=== PATIENT | female | born 1985 | race Caucasian/White ===

== ENCOUNTER → 2016-06-22 | Outpatient (CLI) | payer MEDICAID ==
--- NOTE | 2016-06-22 14:55 | P.BASOAP ---
Subjective Principal diagnosis: Morbid obesity Patient started her Adipex 3 months ago. Since that time the patient is an about 5-6 pounds of weight loss. She was able to meet with the dietitian last visit. Blood pressure stable. She still is eating about 50% of her medial size when compared to preoperative. Objective - Exam Abdomen: Soft, nontender, nondistended Assessment/Plan (1) Morbid obesity Narrative/Plan: Continue exercise and dietary regimen. Finish out the 90 day supply of Adipex and was provided. Patient I did briefly discuss the further surgical options of duodenal switch and biliopancreatic diversion. Follow-up in the office in August. Plan: Date: Initial Weight: 133.9 kg Initial BMI: Current Weight: Current BMI: Type of Surgery: Total Volume in Band: Previous Volume: Volume Removed: Volume Added: Band Size:
[2016-06-22 14:57] VITALS: BMI 39.5
[2016-06-22 15:10] VITALS: BP 138/93; PULSE 83; TEMP 97.8
== END | disposition home or self-care (01) ==
LOC: BARWHC3 13:13
PROVIDERS: ATTEND Surgery
DX: Z71.3 Dietary counseling and surveillance (principal); Z48.815 Encounter for surgical aftercare following surgery on the digestive system; E66.01 Morbid (severe) obesity due to excess calories; Z98.84 Bariatric surgery status
CPT/HCPCS: 99211

== ENCOUNTER → 2018-10-13 | Outpatient (CLI) | payer MEDICAID ==
[2018-10-13 17:05] LABS: LDL Cholesterol,Calculated 121.8 mg/dL (0.0-131.0); VLDL Calculation 34.2 mg/dL (5.00-40.00)
[2018-10-13 17:06] LABS: African American GFR (CKD) 138.8 (60.0-200.0); Albumin 4.2 g/dL (3.80-4.90); Albumin/Globulin Ratio 1.5 (1.60-3.17); Anion Gap 7.5 mmol/L (4.00-12.00); Calcium 9.4 mg/dL (8.7-10.3); Carbon Dioxide 25.5 mmol/L (21.6-31.8); Globulin 2.8 g/dL (1.6-3.3); Potassium 4.9 mmol/L (3.5-5.5); Total Bilirubin 0.3 mg/dL (0.3-1.2)
[2018-10-13 17:15] LABS: Thyroid Peroxidase Antibodies 96.2 U/mL (0.0-60.0)
[2018-10-13 17:27] LABS: Vitamin D 25 Hydroxy 14.2 ng/mL (30.0-100.0)
[2018-10-13 18:29] LABS: Hemoglobin A1C 5.7 % (4.0-6.0)
== END | disposition home or self-care (01) ==
LOC: LABWHC1 07:57
PROVIDERS: ATTEND Clinical Nurse Specialist Women's Health
DX: R53.83 Other fatigue (principal); Z68.42 Body mass index [BMI] 45.0-49.9, adult; Z83.3 Family history of diabetes mellitus
CPT/HCPCS: 36415; 80053; 80061; 82306; 82607; 82728; 83036; 83525; 84439; 84443; 84481; 86141; 86376

== ENCOUNTER → 2019-01-25 | Outpatient (CLI) | payer MEDICAID ==
[2019-01-25 19:48] LABS: Iron Saturation 21.52 (12.00-45.00)
[2019-01-25 20:04] LABS: Ferritin 12.5 ng/mL (10.0-291.0)
== END | disposition home or self-care (01) ==
LOC: LABWHC1 09:00
PROVIDERS: ATTEND Clinical Nurse Specialist Women's Health
DX: E61.1 Iron deficiency (principal)
CPT/HCPCS: 36415; 82728; 83540; 83550

== ENCOUNTER → 2019-06-11 | Outpatient (CLI) | payer BC ==
[2019-06-12 01:44] LABS: T4, Free (Free Thyroxine) 1.3 ng/dL (0.80-1.80); Thyroid Peroxidase Antibodies 101.2 U/mL (0.0-60.0)
== END | disposition home or self-care (01) ==
LOC: LABWHC1 14:43
PROVIDERS: ATTEND Internal Medicine Endocrinology, Diabetes & Metabolism
DX: R76.8 Other specified abnormal immunological findings in serum (principal)
CPT/HCPCS: 36415; 84439; 84443; 84480; 86376

== ENCOUNTER → 2019-10-23 | Outpatient (CLI) | payer BC ==
[2019-10-23 15:44] LABS: HCT 35.6 % (34.0-46.0); HGB 11.5 gm/dL (11.4-16.0); MCH 28.3 pg (25.0-35.0); MCHC 32.2 g/dL (31.0-37.0); Mean Platelet Volume 7.1; Platelet Count 498 k/uL (150-450); RBC 4.05 m/uL (3.80-5.40); RDW 13.4 % (11.5-15.5); WBC 13.5 k/uL (3.8-10.6)
[2019-10-23 23:51] LABS: African American GFR (CKD) 137.8 (60.0-200.0); Non-African American GFR(CKD) 118.9 (60.0-200.0)
[2019-10-23 23:57] LABS: Thyroid Peroxidase Antibodies 104.5 U/mL (0.0-60.0)
[2019-10-23 23:59] LABS: T4, Free (Free Thyroxine) 1.1 ng/dL (0.80-1.80)
[2019-10-24 01:42] LABS: Hemoglobin A1C 5.3 % (4.0-6.0)
[2019-10-24 04:56] LABS: Creatinine,Urine Random 307.2 mg/dL
== END | disposition home or self-care (01) ==
LOC: LABWHC1 13:36
PROVIDERS: ATTEND Internal Medicine Endocrinology, Diabetes & Metabolism
DX: R76.8 Other specified abnormal immunological findings in serum (principal); O10.012 Pre-existing essential hypertension complicating pregnancy, second trimester; O99.212 Obesity complicating pregnancy, second trimester
CPT/HCPCS: 36415; 82565; 82570; 82947; 83036; 83615; 84156; 84439; 84443; 84450; 84460; 84480; 84520; 85027; 86376

== ENCOUNTER → 2019-11-09 | Outpatient (CLI) | payer BC | END | disposition home or self-care (01) | LOC: LABWHC1 10:08 | PROVIDERS: ATTEND Obstetrics & Gynecology | DX: Z34.02 Encounter for supervision of normal first pregnancy, second trimester (principal) | CPT/HCPCS: 86850 ==

== ENCOUNTER 2020-01-22 15:58 | Inpatient (IN) | payer BC ==
[2020-01-22] MEDS ORDERED: BUTORPHANOL 1 MG/ML 1 ML VIAL IV PRN (16:44)
[2020-01-22] MEDS ORDERED: DINOPROSTONE 10 MG INSERT.ER VAGINAL ONE (16:44)
[2020-01-22] MEDS: LABETALOL 100 MG TAB PO SCH (21:13)
[2020-01-23] MEDS ORDERED: OXYTOCIN 10 UNIT/ML 1 ML VIAL IM PRN (00:26)
[2020-01-23] MEDS ORDERED: CARBOPROST TROMETHAMINE 250 MCG/ML 1 ML AMP IM PRN (00:26)
[2020-01-23] MEDS ORDERED: LIDOCAINE 0.5% (PF) 5 MG/ML (50 ML SDV) SQ PRN (00:26)
[2020-01-23] MEDS ORDERED: METHYLERGONOVINE 0.2 MG/ML 1 ML AMP IM PRN (00:26)
[2020-01-23] MEDS ORDERED: TERBUTALINE 1 MG/ML VIAL SQ PRN (00:26)
[2020-01-23] MEDS: LACTATED RINGERS 1,000 ML IV SCH ×3 (05:36→20:40)
[2020-01-23] MEDS: OXYTOCIN 30 UNITS/500 ML NS 30 UNIT in SALINE 1 500ML.BAG IV SCH (05:51)
[2020-01-23 06:02] LABS: Basophils # (A) 0.1 k/uL (0-0.2); Basophils % (A) 1 %; Eosinophils # (A) 0.2 k/uL (0-0.7); Eosinophils % (A) 1 %; HGB 11.9 gm/dL (11.4-16.0); Lymphocytes # (A) 3.1 k/uL (1.0-4.8); Lymphocytes % (A) 29 %; MCH 28.2 pg (25.0-35.0); MCV 85.5 fL (80.0-100.0); Mean Platelet Volume 7.5; Monocytes # (A) 0.5 k/uL (0-1.0); Monocytes % (A) 4 %; Neutrophils # (A) 6.9 k/uL (1.3-7.7); Neutrophils % (A) 63 %; Platelet Count 410 k/uL (150-450); RBC 4.22 m/uL (3.80-5.40); RDW 13.7 % (11.5-15.5); WBC 10.9 k/uL (3.8-10.6)
[2020-01-23] MEDS: LABETALOL 100 MG TAB PO SCH ×2 (09:00→20:54)
--- NOTE | 2020-01-23 17:42 | P.HPOB ---
History of Present Illness H&P Date: 01/23/20 Chief Complaint: Induction of labor 34-year-old presents at 38 weeks and 2 days for induction of labor due to gestational hypertension controlled on medication. Her cervix is closed, thick, -2 station. She is not tess. heart tones are 135 with moderate variability and reactive. She will undergo a 2-stage induction of labor. Review of Systems All systems: negative Constitutional: Denies chills, Denies fever Eyes: denies blurred vision, denies pain Ears, nose, mouth and throat: Denies headache, Denies sore throat Cardiovascular: Denies chest pain, Denies shortness of breath Respiratory: Denies cough Gastrointestinal: Denies abdominal pain, Denies diarrhea, Denies nausea, Denies vomiting Genitourinary: Denies dysuria, Denies hematuria Musculoskeletal: Denies myalgias Integumentary: Denies pruritus, Denies rash Neurological: Denies numbness, Denies weakness Psychiatric: Denies anxiety, Denies depression Endocrine: Denies fatigue, Denies weight change Past Medical History Past Medical History: No Reported History Additional Past Medical History / Comment(s): BACK PAIN. Obstetric history: This is her first . She's had care with me since the first trimester. I put her on labetalol at the beginning of the third trimester in the . She's been followed with me and MFM through NSTs and biophysical profiles. Blood type is O-, and breast negative, HIV nonreactive, rubella immune, RPR nonreactive, hepatitis B negative. History of Any Multi-Drug Resistant Organisms: None Reported Past Surgical History: Bariatric Surgery, Cholecystectomy Additional Past Surgical History / Comment(s): EGD, 2-1-16 lap sleeve Past Anesthesia/Blood Transfusion Reactions: Motion Sickness Past Psychological History: No Psychological Hx Reported Smoking Status: Never smoker Past Alcohol Use History: None Reported Past Drug Use History: None Reported - Past Family History Sister(s) Family Medical History: Thyroid Disorder Father Family Medical History: Diabetes Mellitus Mother Family Medical History: No Reported History, Thyroid Disorder Additional Family Medical History / Comment(s): chronic kidney stones, mother 2 years ago (2018) from ?blood clot or thrombocytopenia after lasik surgery. Medications and Allergies Home Medications Medication Instructions Recorded Confirmed Type Aspirin [Adult Low Dose Aspirin EC] 81 mg PO DAILY MDD 81 mg 01/22/20 01/22/20 History Labetalol [Trandate] 100 mg PO BID 01/22/20 01/22/20 History Pnv,Calcium 72/Iron/Folic Acid 1 each PO DAILY MDD 1 tab 01/22/20 01/22/20 History [ Plus Tablet] Allergies Allergy/AdvReac Type Severity Reaction Status Date / Time seasonal AdvReac Cough Uncoded 06/22/16 14:56 Exam Osteopathic Statement: *. No significant issues noted on an osteopathic st ructural exam other than those noted in the History and Physical/Consult. Intake and Output 01/23/20 01/23/20 01/23/20 06:59 14:59 22:59 Other: # Voids 1 1 # Bowel Movements 0 Heart: Regular rate and rhythm Lungs: Clear to auscultation bilaterally Abdomen: Soft, nontender Extremities: Negative Homans sign Results Result Diagrams: 01/23/20 05:48 Abnormal Lab Results - Last 24 Hours (Table) 01/23/20 Range/Units 05:48 WBC 10.9 H (3.8-10.6) k/uL Assessment and Plan (1) Gestational hypertension Current Visit: Yes Status: Acute Code(s): O13.9 - GESTATIONAL HTN W/O SIGNIFICANT PROTEINURIA, UNSP TRIMESTER SNOMED Code(s): 497269264 (2) Normal labor Current Visit: Yes Status: Acute Code(s): O80 - ENCOUNTER FOR FULL-TERM UNCOMPLICATED DELIVERY; Z37.9 - OUTCOME OF DELIVERY, UNSPECIFIED SNOMED Code(s): 15567233 Plan: 1. Induction of labor with Cervidil and then amniotomy and Pitocin in the morning 2. Monitor blood pressures and continue labetalol 3. Anticipate normal vaginal delivery
[2020-01-24] MEDS: LACTATED RINGERS 1,000 ML IV SCH ×3 (03:14→18:14)
[2020-01-24] MEDS ORDERED: ROPIVACAINE 100 MG, fentaNYL (PF) 200 MCG in SODIUM CHLORIDE 0.9% 76 ML EPIDURAL ONE (03:15)
[2020-01-24] MEDS ORDERED: AMPICILLIN 2,000 MG in SODIUM CHLORIDE 0.9% 100 ML IVPB STA (05:17)
[2020-01-24] MEDS: LABETALOL 100 MG TAB PO SCH (09:23)
[2020-01-24] MEDS ORDERED: AMPICILLIN 1,000 MG in SODIUM CHLORIDE 0.9% 50 ML IVPB SCH (09:30)
[2020-01-24] MEDS: OXYTOCIN 30 UNITS/500 ML NS 30 UNIT in SALINE 1 500ML.BAG IV SCH (12:09)
[2020-01-24] MEDS ORDERED: ceFAZolin 3 GM in SODIUM CHLORIDE 0.9% 100 ML IVPB ONE (13:08)
[2020-01-24] MEDS ORDERED: CITRIC ACID-SODIUM CITRATE 15 ML CUP PO ONE ×2 (13:08→13:14)
[2020-01-24] MEDS ORDERED: OXYTOCIN 10 UNIT/ML 1 ML VIAL ONE (13:13)
[2020-01-24] MEDS ORDERED: NALBUPHINE 10 MG/ML (1 ML AMP) ONE (13:13)
[2020-01-24] MEDS ORDERED: ONDANSETRON 4 MG/2 ML VIAL ONE (13:13)
[2020-01-24] MEDS ORDERED: KETOROLAC 15 MG/ML 1 ML VIAL ONE (13:13)
[2020-01-24] MEDS ORDERED: MORPHINE SULFATE (PF) 0.3 MG/0.3 ML SYR ONE (13:13)
[2020-01-24] MEDS ORDERED: LANOLIN CREAM 5 GM TUBE TOPICAL PRN (13:55)
[2020-01-24] MEDS ORDERED: METOCLOPRAMIDE 5 MG/ML 2 ML VIAL IVP PRN (13:55)
[2020-01-24] MEDS ORDERED: diphenhydrAMINE 25 MG CAP PO PRN (13:55)
[2020-01-24] MEDS ORDERED: ACETAMINOPHEN TAB 325 MG TAB PO PRN (13:55)
[2020-01-24] MEDS ORDERED: diphenhydrAMINE 50 MG/ML 1 ML VIAL IVP PRN ×2 (13:55)
[2020-01-24] MEDS ORDERED: NALOXONE 0.4 MG/ML 1 ML VIAL IV PRN (13:55)
[2020-01-24] MEDS ORDERED: ONDANSETRON 4 MG/2 ML VIAL IVP PRN (13:55)
[2020-01-24] MEDS ORDERED: diphenhydrAMINE 50 MG CAP PO PRN (13:55)
[2020-01-24] MEDS ORDERED: ZOLPIDEM 5 MG TAB PO PRN (13:55)
[2020-01-24] MEDS ORDERED: SIMETHICONE 80 MG CHEWABLE PO PRN (13:55)
[2020-01-24] MEDS ORDERED: OXYTOCIN 20 UNITS/1000 ML NS 1,000 ML IV SCH (14:00)
[2020-01-24] MEDS ORDERED: INFLUENZA VACCINE (6 MOS+) 60 MCG/0.5 ML SYRINGE IM ONE (14:10)
[2020-01-24] MEDS ORDERED: OXYTOCIN 10 UNIT/ML 1 ML VIAL IV ONE (17:38)
[2020-01-24 17:55] LABS: Basophils % (A) 0 %; Eosinophils % (A) 0 %; HCT 34.9 % (34.0-46.0); HGB 11.5 gm/dL (11.4-16.0); Lymphocytes # (A) 1.6 k/uL (1.0-4.8); Lymphocytes % (A) 6 %; MCHC 32.9 g/dL (31.0-37.0); MCV 85.2 fL (80.0-100.0); Mean Platelet Volume 7.8; Monocytes % (A) 4 %; Neutrophils # (A) 21.8 k/uL (1.3-7.7); Neutrophils % (A) 89 %; Platelet Count 462 k/uL (150-450); RBC 4.09 m/uL (3.80-5.40); RDW 13.9 % (11.5-15.5); WBC 24.5 k/uL (3.8-10.6)
[2020-01-24] MEDS ORDERED: CARBOPROST TROMETHAMINE 250 MCG/ML 1 ML AMP IM ONE (18:28)
--- NOTE | 2020-01-24 19:17 | P.PN ---
Progress Note - Text Progress Note Date: 01/24/20 I was called to see this patient in regards to bleeding. Please see dictated H&P and operative note per Dr. Dickerson. Brief summary this is a pleasant 34-year-old 1 para 0 female 38 weeks status post primary section at 1334 this afternoon for failed induction of labor for hypertension. Patient postoperative apparently did not have much vaginal bleeding but then at approximately 5:15 she had a very large gush of blood with multiple clots. Nurse called me and at this time I instructed her to give her 10 units of Pitocin IV push because the patient does have chronic hypertension therefore is not an ideal Methergine candidate. I came in and examined the patient and although her exam is somewhat limited by a her obesity, it was felt that she had multiple clots in the uterus which I was able to express with vigorous fundal pressure. Quantitative blood loss with the initial bleeding and what I removed was approximately 2630 mL. Patient's vital signs shows to be tachycardic and hypotensive therefore she is given a bolus of lactated Ringer's. I continued to do fundal massage and appeared to be bleeding diminished. Proactively I did feel is best to go ahead and give her a dose of Hemabate, which she tolerated very well. The patient did have blood drawn for her RhoGAM done approximately 4:30, at that time was 11.5. Preoperative 11.9. Most likely this is not accurate because clinically the patient has lost a significant amount of blood. With the uterine massage, Pitocin, and Hemabate patient now appears stable with blood pressures have improved and she is less tachycardic. I did multiple exams and I cannot see any significant bleeding at this time but once again exam is limited due to the patient's habitus. I discussed with the patient and her and family plan at this time is to watch closely, continue IV Pitocin and IV fluids, repeat a CBC in approximately 1 hour. If I had concerns with further bleeding or her hemoglobin was less than 8 I did discuss giving her 2 units of blood which she is agreeable to. We are going to wait at this time because it appears her bleeding has subsided. I also discussed the fact that if she continued to have heavy bleeding and we are unable to stop the bleeding with medical treatment she may need reexploration. For this reason we'll keep her nothing by mouth at this time.
[2020-01-24 20:07] LABS: Basophils # (A) 0.1 k/uL (0-0.2); Basophils % (A) 0 %; Eosinophils # (A) 0.2 k/uL (0-0.7); Eosinophils % (A) 1 %; HCT 30.3 % (34.0-46.0); Lymphocytes # (A) 1.7 k/uL (1.0-4.8); Lymphocytes % (A) 8 %; MCH 28.4 pg (25.0-35.0); MCHC 33.1 g/dL (31.0-37.0); MCV 85.9 fL (80.0-100.0); Mean Platelet Volume 7.5; Monocytes # (A) 0.7 k/uL (0-1.0); Monocytes % (A) 3 %; Neutrophils # (A) 19.4 k/uL (1.3-7.7); Neutrophils % (A) 88 %; Platelet Count 475 k/uL (150-450); RBC 3.52 m/uL (3.80-5.40); RDW 14.2 % (11.5-15.5); WBC 22.1 k/uL (3.8-10.6)
[2020-01-24] MEDS ORDERED: Rhogam IMMUNE GLOBULIN 1,500 UNIT/1 ML IM ONE (20:47)
[2020-01-25] MEDS: LACTATED RINGERS 1,000 ML IV SCH ×2 (03:31→21:31)
--- NOTE | 2020-01-25 07:06 | P.PN ---
Progress Note - Text Progress Note Date: 01/25/20 Patient is without complaints. Has not ambulated, but denies paresthesia or weakness. Denies headache or pruritis. Minimal pain. Back puncture site clean and dry. POD #1 s/p with duramorph. Doing well
[2020-01-25] MEDS: KETOROLAC 15 MG/ML 1 ML VIAL IVP SCH ×3 (08:23→22:37)
--- NOTE | 2020-01-25 08:26 | P.OP ---
Date of Procedure: 01/24/20 Preoperative Diagnosis: 1. at 38 weeks 3 days 2. gestational hypertension on labetalol 3. arrest of descent Postoperative Diagnosis: 1. at 38 weeks 3 days 2. gestational hypertension on labetalol 3. arrest of descent 4. OP position of head Procedure(s) Performed: Primary low transverse Anesthesia: epidural Surgeon: Penelope Dickerson Scientist/Engineer #1: Sheldon Moya Estimated Blood Loss (ml): 800 IV fluids (ml): 800 Urine output (ml): 100 Pathology: other (placenta) Condition: stable Disposition: floor Indications for Procedure: 34-year-old presented at 38 weeks and 2 days for induction of labor due to gestational hypertension on labetalol. Her cervix was closed, thick, -3. heart tones 135 with moderate variability and reactive. Cervidil did dilate her to fingertip. Pitocin was started. I was able to rupture her membranes by 12:30pm when she was 1 cm dilated, a 60% effaced, -2 station. I took quite some time to get her uncomfortable. She did get an epidural at 3 in the morning of the following day. At this time she was 3 cm dilated, 70% effaced, and -2 station. She did progress to complete by 11:49 AM. She pushed for over an hour without descent of head. section was called after informed consent was obtained. Operative Findings: Viable male, Apgars 7, 9, weight 8 pounds. Normal uterus, tubes, ovaries. Description of Procedure: Patient was taken to the operating room where spinal anesthesia was found be adequate. She was prepped and draped in normal sterile fashion in dorsal supine position with a leftward tilt. Pfannenstiel skin incision was made the scalpel and carried through to the underlying layer of fascia with the scalpel. Fascia was incised in midline and carried bilaterally with the Nunez scissors. The superior aspect of the fascial incision was grasped with [place] clamps elevated and the underlying rectus muscles dissected off with the Nunez's. Attention was then turned to inferior aspect of same incision which in a similar fashion was grasped tented up and the underlying rectus muscles dissected off with the Nunez's. The rectus muscles were the midline and the peritoneum was identified tented up and entered sharply with the scalpel. The incision was extended superiorly and inferiorly with good visualization of the bladder. The bladder blade was inserted and the vesicouterine peritoneum was incised the [place]zen[place]ums then carried bilaterally and bladder flap created digitally. A low transverse incision was then made on the uterus with the scalpel. This was carried bilaterally and digital manner. Infant's head delivered atraumatically, nose and mouth bulb suctioned, cord clamped and cut, handed off to waiting nurses. Apgars 7,9, weight 8 lbs. Placenta delivered manually, intact with three-vessel cord. The uterus is exteriorized and cleared of all clots and debris. The uterine incision was closed with 0 Vicryl in a running locked fashion. Second layer of the same sutures used in imbricating fashion to obtain excellent hemostasis. Bladder flap was then reapproximated using 2-0 Vicryl in a running fashion. Both ovaries and tubes appeared normal. The uterus was placed back into the abdomen. The peritoneum was reapproximated using 2-0 Vicryl in a running fashion. The muscles were reapproximated using 2-0 Vicryl in interrupted fashion. The fascia was reapproximated using 0 Vicryl in a running fashion. The subcutaneous tissues closed with 3-0 Vicryl running fashion. The skin was closed adarsh. Patient tolerated the procedure well, sponge and instrument counts were correct times 2 and she was taken to the recovery room in stable condition.
--- NOTE | 2020-01-25 08:30 | P.PNOBGPC ---
Subjective - Subjective Principal diagnosis: Status post primary low transverse postop day #1 Interval history: Patient seen and examined. Notes reviewed from Dr. Moya. Patient had a hemorrhage yesterday evening. Her morning CBC is still not drawn though I would not prefer to wait to transfuse at this time. She is tachycardic and her blood pressure is stable but lower than it usually is. She denies nausea, vomiting, chest pain, shortness of breath, dizziness or headache. Her urine output is adequate but I would expect more since she's had some much fluid. We did discuss risks and benefits of a blood transfusion. The CBC has been drawn and all wait for those results then order blood and possibly Lasix. Patient reports: Reports appetite normal, Reports pain well controlled : doing well Objective - Vital Signs Latest vital signs: Vital Signs Temp Pulse Resp BP Pulse Ox 01/25/20 04:00 98.5 F 123 H 16 109/59 01/25/20 00:00 97.6 F 115 H 16 120/60 01/24/20 21:00 116 H 16 106/57 97 01/24/20 20:00 97.5 F L 110 H 16 110/66 97 01/24/20 16:11 84 16 124/69 97 01/24/20 15:41 74 16 130/61 95 01/24/20 15:11 91 16 131/60 97 01/24/20 14:56 90 16 133/57 98 01/24/20 14:41 83 16 127/61 99 01/24/20 14:26 86 16 132/72 98 01/24/20 14:11 98.3 F 90 16 119/58 98 Intake and Output 01/24/20 01/25/20 01/25/20 22:59 06:59 14:59 Intake Total 500 500 Output Total 200 300 250 Balance -200 200 250 Intake: Oral 500 500 Output: Urine 200 300 250 Other: Voiding Method Indwelling Catheter - Exam Lungs: bilateral: normal Chest: Normal S1, Normal S2 Extremities: Present: normal Abdomen: Present: normal appearance, soft. Absent: distention, tenderness Incision: Present: normal, dry, intact Uterus: Present: normal, firm - Labs Labs: Abnormal Lab Results - Last 24 Hours (Table) 01/24/20 01/24/20 Range/Units 16:22 19:49 WBC 24.5 H 22.1 H (3.8-10.6) k/uL RBC 3.52 L (3.80-5.40) m/uL Hgb 10.0 L D (11.4-16.0) gm/dL Hct 30.3 L (34.0-46.0) % Plt Count 462 H 475 H (150-450) k/uL Neutrophils # 21.8 H 19.4 H (1.3-7.7) k/uL Assessment and Plan (1) Gestational hypertension Current Visit: Yes Status: Acute Code(s): O13.9 - GESTATIONAL HTN W/O SIGNIFICANT PROTEINURIA, UNSP TRIMESTER SNOMED Code(s): 479004222 (2) Normal labor Current Visit: Yes Status: Resolved Code(s): O80 - ENCOUNTER FOR FULL-TERM UNCOMPLICATED DELIVERY; Z37.9 - OUTCOME OF DELIVERY, UNSPECIFIED SNOMED Code(s): 60596550 (3) Status post primary low transverse section Current Visit: Yes Status: Acute Code(s): Z98.891 - HISTORY OF UTERINE SCAR FROM PREVIOUS SURGERY SNOMED Code(s): 363467180 (4) hemorrhage Current Visit: Yes Status: Acute Code(s): O72.1 - OTHER IMMEDIATE HEMORRHAGE SNOMED Code(s): 92316864 Plan: 1. Check CBC 2. Transfuse 2 units packed red blood cells 3. Monitor urine output: Possible 20 mg of Lasix if her blood pressure remained stable and urine output remains low
[2020-01-25 08:46] LABS: Basophils # (A) 0.1 k/uL (0-0.2); Basophils % (A) 0 %; Eosinophils # (A) 0.1 k/uL (0-0.7); Eosinophils % (A) 0 %; HCT 24.1 % (34.0-46.0); Lymphocytes # (A) 3.6 k/uL (1.0-4.8); Lymphocytes % (A) 19 %; MCH 28.2 pg (25.0-35.0); MCHC 32.9 g/dL (31.0-37.0); MCV 85.8 fL (80.0-100.0); Mean Platelet Volume 7.4; Monocytes # (A) 0.7 k/uL (0-1.0); Monocytes % (A) 4 %; Neutrophils # (A) 14.1 k/uL (1.3-7.7); Neutrophils % (A) 75 %; Platelet Count 418 k/uL (150-450); RBC 2.81 m/uL (3.80-5.40); RDW 14.3 % (11.5-15.5); WBC 18.8 k/uL (3.8-10.6)
[2020-01-25 08:52] LABS: HGB 7.9 gm/dL (11.4-16.0)
[2020-01-25] MEDS: SENNOSIDES-DOCUSATE SODIUM 1 EACH TAB PO SCH ×2 (09:03→21:22)
[2020-01-25] MEDS ORDERED: FUROSEMIDE 10 MG/ML 2 ML VIAL IV ONE (09:04)
[2020-01-25] MEDS ORDERED: SODIUM CHLORIDE 0.9% 1,000 ML IV SCH (09:45)
[2020-01-26] MEDS: LACTATED RINGERS 1,000 ML IV SCH ×2 (01:32→13:48)
[2020-01-26] MEDS: KETOROLAC 15 MG/ML 1 ML VIAL IVP SCH ×3 (04:38→06:39)
[2020-01-26 07:27] LABS: Basophils # (A) 0.1 k/uL (0-0.2); Basophils % (A) 0 %; Eosinophils # (A) 0.2 k/uL (0-0.7); Eosinophils % (A) 2 %; HCT 24.4 % (34.0-46.0); HGB 8.2 gm/dL (11.4-16.0); Lymphocytes # (A) 2.8 k/uL (1.0-4.8); Lymphocytes % (A) 22 %; MCH 28.6 pg (25.0-35.0); MCHC 33.6 g/dL (31.0-37.0); MCV 85.1 fL (80.0-100.0); Mean Platelet Volume 7.2; Monocytes # (A) 0.6 k/uL (0-1.0); Monocytes % (A) 4 %; Neutrophils # (A) 9.1 k/uL (1.3-7.7); Neutrophils % (A) 70 %; Platelet Count 378 k/uL (150-450); RBC 2.86 m/uL (3.80-5.40); RDW 14.4 % (11.5-15.5); WBC 12.9 k/uL (3.8-10.6)
[2020-01-26] MEDS: HYDROcodone/APAP 7.5-325MG 1 EACH TAB PO PRN (08:50)
[2020-01-26] MEDS ORDERED: IRON POLYSACCHARIDES COMPLEX 150 MG CAP PO SCH (12:00)
--- NOTE | 2020-01-26 12:04 | P.PNOBGPC ---
Subjective - Subjective Principal diagnosis: Status post section postoperative day #2. Interval history: Patient is feeling much better today. She denies any dizziness or lightheadedness. She is passing flatus and bowel movement. She has been urinating without difficulty. Her pain is fairly well controlled with [place]. Lochia is minimal. She is quite swollen in her legs. Patient reports: Reports appetite normal, Reports voiding normally, Reports pain well controlled, Reports ambulating normally [place]: doing well Objective - Vital Signs Latest vital signs: Vital Signs Temp Pulse Pulse Resp BP BP Pulse Ox 01/26/20 04:00 98.4 F 108 H 16 134/71 98 01/26/20 00:00 98.1 F 108 H 18 122/68 98 01/25/20 20:00 98.6 F 110 H 18 128/72 99 01/25/20 16:00 98.3 F 116 H 16 131/64 98 01/25/20 13:47 98.5 F 120 H 16 107/56 98 01/25/20 12:55 98.3 F 121 H 16 119/64 100 01/25/20 12:31 98.3 F 116 H 16 116/60 97 01/25/20 12:25 98.6 F 116 H 16 96 01/25/20 12:24 98.6 F 116 H 16 113/60 96 01/25/20 12:15 98.1 F 112 H 16 123/67 96 01/25/20 12:12 98.1 F 116 H 16 119/60 100 Intake and Output 01/25/20 01/26/20 01/26/20 22:59 06:59 14:59 Output Total 650 475 Balance -650 -475 Output: Urine 650 475 Other: # Bowel Movements 1 - Exam Extremities: Present: edema (2-3+ pitting edema in lower extremities) Abdomen: Present: normal appearance, soft (Positive bowel sounds 4). Absent: distention, tenderness Incision: Present: normal, dry, intact. Absent: erythematous Uterus: Present: normal, firm. Absent: tenderness - Labs Labs: Abnormal Lab Results - Last 24 Hours (Table) 01/23/20 01/26/20 Range/Units 05:48 07:03 WBC 12.9 H (3.8-10.6) k/uL RBC 2.86 L (3.80-5.40) m/uL Hgb 8.2 L (11.4-16.0) gm/dL Hct 24.4 L (34.0-46.0) % Neutrophils # 9.1 H (1.3-7.7) k/uL Crossmatch See Detail Assessment and Plan (1) Gestational hypertension Current Visit: Yes Status: Acute Code(s): O13.9 - GESTATIONAL HTN W/O SIGNIFICANT PROTEINURIA, UNSP TRIMESTER SNOMED Code(s): 500776719 (2) hemorrhage Current Visit: Yes Status: Acute Code(s): O72.1 - OTHER IMMEDIATE HEMORRHAGE SNOMED Code(s): 29213597 (3) Status post primary low transverse section Current Visit: Yes Status: Acute Code(s): Z98.891 - HISTORY OF UTERINE SCAR FROM PREVIOUS SURGERY SNOMED Code(s): 265504318 Plan: Although patient is anxious to go home, I have suggested that she stay at least 1 more day to confirm that her blood pressure stays stable that she is still slightly tachycardic. Will add iron supplementation. Patient is encouraged to drink plenty of water.
[2020-01-26] MEDS ORDERED: FERROUS SULFATE 325 MG TAB PO SCH (12:30)
[2020-01-26] MEDS: IBUPROFEN 600 MG TAB PO PRN ×2 (13:01→20:41)
[2020-01-26] MEDS: SENNOSIDES-DOCUSATE SODIUM 1 EACH TAB PO SCH ×2 (13:48→20:14)
[2020-01-26] MEDS ORDERED: LABETALOL 100 MG TAB PO SCH (21:00)
[2020-01-27] MEDS: HYDROcodone/APAP 7.5-325MG 1 EACH TAB PO PRN ×2 (00:18→06:39)
[2020-01-27 04:04] VITALS: TEMP 98.1
[2020-01-27 09:58] VITALS: BP 136/84; PULSE 108; RESP 16
[2020-01-27] MEDS: SENNOSIDES-DOCUSATE SODIUM 1 EACH TAB PO SCH (10:16)
--- NOTE | 2020-01-27 10:57 | P.DS ---
Providers Date of admission: 01/22/20 15:58 Expected date of discharge: 01/27/20 Attending physician: Penelope Dickerson Primary care physician: Stated None - Discharge Diagnosis(es) (1) Gestational hypertension Current Visit: Yes Status: Acute (2) hemorrhage Current Visit: Yes Status: Acute (3) Status post primary low transverse section Current Visit: Yes Status: Acute Hospital Course: Patient is still doing well. She is passing flatus and bowel movement. Pain is fairly well controlled with ibuprofen and [place]. Her lochia is still minimal. Vital signs have been stable. She did have 1 elevated blood pressure of 145/80s but this has come back down to normal. She was not started on labetalol during this admission. She denies any other symptoms. Vital signs are stable. Abdomen is soft with fundus firm and nontender. Positive bowel sounds 4 noted. Incision is clean dry and intact with adarsh in place. Extremities show negative Homans. Impression is status post primary section postoperative day #3. Plan is to discharge home today. Routine and postoperative instructions are given. She is advised to continue taking her blood pressure at home and if she does start to have elevated blood pressures to give the office a call. She is given a prescription for ibuprofen and [place]. She is counseled regarding opioid use and has signed consent form. [place] will be removed and Steri-Strips placed prior to discharge. She is advised to call the office if she has any further questions or concerns prior to her postoperative appointment with Dr. Dickerson and 1 week. Procedures: Cervidil cervical ripening Oxytocin induction of labor Primary low transverse section on 01/24/2020 Patient Condition at Discharge: Stable Plan - Discharge Summary New Discharge Prescriptions: New HYDROcodone/APAP 7.5-325MG [[place] 7.5-325] 1 each PO Q6H PRN #28 tab PRN Reason: Severe Pain Iron Polysaccharide Complex [Myferon 150] 150 mg PO DAILY #30 capsule Continue Pnv,Calcium 72/Iron/Folic Acid [ Plus Tablet] 1 each PO DAILY MDD 1 tab Discontinued Aspirin [Adult Low Dose Aspirin EC] 81 mg PO DAILY MDD 81 mg No Action Labetalol [Trandate] 100 mg PO BID Discharge Medication List Labetalol [Trandate] 100 mg PO BID 01/22/20 [History] Pnv,Calcium 72/Iron/Folic Acid [ Plus Tablet] 1 each PO DAILY MDD 1 tab 01/22/20 [History] HYDROcodone/APAP 7.5-325MG [[place] 7.5-325] 1 each PO Q6H PRN #28 tab 01/26/20 [Rx] Iron Polysaccharide Complex [Myferon 150] 150 mg PO DAILY #30 capsule 01/26/20 [Rx] Follow up Appointment(s)/Referral(s): Penelope Dickerson DO [Doctor of Osteopathic Medicine] - 1 Week Activity/Diet/Wound Care/Special Instructions: Instructions 1. Do not begin any exercise program for 3 weeks. 2. Do not resume sexual relations for 3 weeks or longer if uncomfortable. 3. You may take tub baths or showers at any time. 4. You may use tampons if desired after 3 weeks. 5. Keep the area of episiotomy (stitches) clean and dry. 6. If you are not nursing, wear a good fitting, supportive bra during the day and limit fluid intake for at least 1 week to prevent breast engorgement. 7. Call the office, [phone], within the next week to make appointment for your 6 week checkup if it has not already been made. 8. Report any of the following occurrences to the doctor promptly: a. Heavy, excessive bleeding b. Chills, fever c. Burning or frequency of urination d. Pain or redness and breasts if nursing e. Increasing pain or swelling in episiotomy (stitches). In addition to the above instructions, the following additional should be followed: 1. No heavy lifting or straining (exercising) until after 6 week checkup. 2. Keep abdominal incision clean and dry: You may wear a dressing if more comfortable. 3. Make office appointment for 10 days after going home or as instructed by her doctor. Discharge Disposition: HOME SELF-CARE
== END 2020-01-27 13:30 | disposition home or self-care (01) | DRG 788 ==
LOC: 4FBP 15:58
PROVIDERS: ADMIT Obstetrics & Gynecology; ATTEND Obstetrics & Gynecology
PROC: 3E0P7VZ Introduction of Hormone into Female Reproductive, Via Natural or Artificial Opening (ICD-10-PCS; 2020-01-22)
PROC: 3E033VJ Introduction of Other Hormone into Peripheral Vein, Percutaneous Approach (ICD-10-PCS; 2020-01-22)
PROC: 3E0334Z Introduction of Serum, Toxoid and Vaccine into Peripheral Vein, Percutaneous Approach (ICD-10-PCS; 2020-01-24)
PROC: 10D00Z1 Extraction of Products of Conception, Low, Open Approach (ICD-10-PCS; principal; 2020-01-24 13:22)
PROC: 30233N1 Transfusion of Nonautologous Red Blood Cells into Peripheral Vein, Percutaneous Approach (ICD-10-PCS; 2020-01-25)
DX: O13.4 Gestational [pregnancy-induced] hypertension without significant proteinuria, complicating childbirth (principal); O62.1 Secondary uterine inertia; Z3A.38 38 weeks gestation of pregnancy; Z37.0 Single live birth; O72.1 Other immediate postpartum hemorrhage; E66.9 Obesity, unspecified; O99.214 Obesity complicating childbirth; O76 Abnormality in fetal heart rate and rhythm complicating labor and delivery; Z83.3 Family history of diabetes mellitus; Z79.82 Long term (current) use of aspirin; O99.844 Bariatric surgery status complicating childbirth; Z90.49 Acquired absence of other specified parts of digestive tract
CPT/HCPCS: 85025; 85461; 86850; 86900; 86901; 86920; 90686

== ENCOUNTER 2020-01-29 15:40 | Outpatient (CLI) | payer BC ==
[2020-01-29 16:16] LABS: Basophils # (A) 0.1 k/uL (0-0.2); Basophils % (A) 1 %; Eosinophils # (A) 0.2 k/uL (0-0.7); Eosinophils % (A) 2 %; HCT 26.3 % (34.0-46.0); HGB 8.8 gm/dL (11.4-16.0); Lymphocytes # (A) 2.4 k/uL (1.0-4.8); Lymphocytes % (A) 28 %; MCH 29.9 pg (25.0-35.0); MCHC 33.5 g/dL (31.0-37.0); MCV 89.3 fL (80.0-100.0); Mean Platelet Volume 6.4; Monocytes # (A) 0.4 k/uL (0-1.0); Monocytes % (A) 4 %; Neutrophils # (A) 5.5 k/uL (1.3-7.7); Neutrophils % (A) 64 %; Platelet Count 643 k/uL (150-450); RBC 2.95 m/uL (3.80-5.40); RDW 14.2 % (11.5-15.5); WBC 8.5 k/uL (3.8-10.6)
[2020-01-29 16:25] LABS: ALT 34 U/L (4-34); AST 41 U/L (14-36); African American GFR (CKD) >90 (>60 ml/min/1.73 sqM); Blood Urea Nitrogen 9 mg/dL (7-17); LDH 599 U/L (313-618); Non-African American GFR(CKD) >90 (>60 ml/min/1.73 sqM); Uric Acid 6.9 mg/dL (3.7-7.4)
[2020-01-29 16:47] LABS: Appearance,Urine Clear (Clear); Bilirubin,Urine Negative (Negative); Blood,Urine Negative (Negative); Color,Urine Yellow; Glucose,Urine (UA) Negative (Negative); Ketones,Urine Negative (Negative); Leukocyte Esterase,Urine Negative (Negative); Nitrite,Urine Negative (Negative); PH, Urine 5.5 (5.0-8.0); Protein,Urine Negative (Negative); Specific Gravity,Urine 1.017 (1.001-1.035); Urobilinogen,Urine <2.0 mg/dL (<2.0)
[2020-01-29 16:48] LABS: Protein/Creatinine Ratio,Urine 0.074
== END 2020-01-29 17:25 | disposition home or self-care (01) ==
LOC: FBPOP 15:40
PROVIDERS: ATTEND Obstetrics & Gynecology
DX: O13.9 Gestational [pregnancy-induced] hypertension without significant proteinuria, unspecified trimester (principal); Z3A.00 Weeks of gestation of pregnancy not specified
CPT/HCPCS: 81003; 82565; 82570; 83615; 84156; 84450; 84460; 84520; 84550; 85025; 99215

== ENCOUNTER 2022-03-19 11:01 | Outpatient (CLI) | payer BC ==
[2022-03-19 12:10] VITALS: BP 131/71; PULSE 112; RESP 18; TEMP 98.3
--- NOTE | 2022-03-19 14:36 | P.MSEPDOC ---
Presenting Problems - Arrival Data Date of Arrival on Unit: 03/19/22 Time of Arrival on Unit: 11:01 Mode of Transport: Ambulatory - Complaint OB-Reason for Admission/Chief Complaint: NST Medical History - Information : 2 Para: 1 Number of Living Children: 1 - Gestational Age Gestational Age by TAVIA (wks/days): 37 Weeks and 3 Days - History Complications: Prior Review of Systems - Review of Systems Constitutional: No problems Breast: No problems ENT: No problems Cardiovascular: No problems Respiratory: No problems Gastrointestinal: No problems Genitourinary: No problems Musculoskeletal: No problems Neurological: No problems Skin: No problems Vital Signs - Temperature Temperature: 98.3 F Temperature Source: Temporal Artery Scan - Pulse Right Sitting Brachial Pulse Rate: 112 Pulse Assessment Method: Pulse Oximetry - Respirations Respiratory Rate: 18 Oxygen Delivery Method: Room Air O2 Sat by Pulse Oximetry: 98 - Blood Pressure Right Arm Sitting Blood Pressure: 131/71 Blood Pressure Mean: 91 Blood Pressure Source: Automatic Cuff Medical Screen Scoring - Assessment - Baby A Baseline FHR: 135 Heart Rate - NICHD Category: Category I (Normal) NST: Reactive Physician Notification - Physician Notified Physician Notified Date: 03/19/22 Physician Notified Time: 11:48 Physician: Juanita Lewis Order Received: Yes - Notification Comment Comment: Alia c\Dr. Lewis, tito , 37 [birth year], presents for biweekly NST for advanced maternal age; reactive NST, Cat 1. Order rec'd to d/c home, follow up as scheduled. Maternal Triage Index - Maternal Triage Index Presenting for scheduled procedure w/no complaint: Yes - Scheduled/Requesting Priority 5 Scheduled/Requesting Priority 5: Yes Criteria Met for Priority 5: Spk c\tito Michel , 37 [birth year], presents for biweekly NST for advanced maternal age; reactive NST, Cat 1. Order rec'd to d/c home, follow up as scheduled. Disposition - Disposition OB Disposition: Discharge to home, Written follow up instructions reviewed Discharge Date: 03/19/22 Discharge Time: 11:55 I agree with the RN Medical Screening Exam: Yes Case reviewed; plan agreed upon as documented in EMR&OBIX.: Yes Diagnosis: SUPERVISION OF ELDERLY MULTIGRAVIDA, THIRD TRIMESTER
== END 2022-03-19 11:50 | disposition home or self-care (01) ==
LOC: FBPOP 11:01
PROVIDERS: ATTEND Obstetrics & Gynecology
DX: O09.523 Supervision of elderly multigravida, third trimester (principal); Z3A.37 37 weeks gestation of pregnancy; Z91.09 Other allergy status, other than to drugs and biological substances
CPT/HCPCS: 59025

== ENCOUNTER 2022-04-06 06:00 | Inpatient (IN) | payer BC ==
[2022-04-06] MEDS ORDERED: ceFAZolin 3 GM in SODIUM CHLORIDE 0.9% 100 ML IVPB ONE (06:30)
[2022-04-06] MEDS ORDERED: CITRIC ACID-SODIUM CITRATE 15 ML CUP PO ONE (06:30)
[2022-04-06 06:42] LABS: Basophils # (A) 0.1 k/uL (0-0.2); Basophils % (A) 1 %; Eosinophils # (A) 0.2 k/uL (0-0.7); Eosinophils % (A) 2 %; HCT 29.4 % (34.0-46.0); HGB 9.6 gm/dL (11.4-16.0); Hypochromasia Slight; Lymphocytes # (A) 2.5 k/uL (1.0-4.8); Lymphocytes % (A) 24 %; MCH 24.3 pg (25.0-35.0); MCHC 32.6 g/dL (31.0-37.0); MCV 74.6 fL (80.0-100.0); Mean Platelet Volume 7.9; Microcytosis Slight; Monocytes # (A) 0.4 k/uL (0-1.0); Monocytes % (A) 4 %; Neutrophils % (A) 68 %; Platelet Count 539 k/uL (150-450); RBC 3.95 m/uL (3.80-5.40); RDW 14.6 % (11.5-15.5); WBC 10.3 k/uL (3.8-10.6)
[2022-04-06] MEDS: LACTATED RINGERS 1,000 ML IV SCH ×2 (06:54→17:40)
[2022-04-06] MEDS ORDERED: KETOROLAC 15 MG/ML 1 ML VIAL ONE (07:59)
[2022-04-06] MEDS ORDERED: MORPHINE SULFATE (PF) 0.3 MG/0.3 ML SYR ONE (07:59)
[2022-04-06] MEDS ORDERED: NALBUPHINE 10 MG/ML (1 ML AMP) ONE (07:59)
[2022-04-06] MEDS ORDERED: ONDANSETRON 4 MG/2 ML VIAL ONE (07:59)
[2022-04-06] MEDS ORDERED: PHENYLEPHRINE-0.9% NACL SYG 1,000 MCG/10 ML SYRINGE ONE (07:59)
[2022-04-06] MEDS ORDERED: OXYTOCIN 30 UNITS/500 ML NS BAG IV ONE (07:59)
[2022-04-06] MEDS ORDERED: ONDANSETRON 4 MG/2 ML VIAL IVP PRN (08:45)
[2022-04-06] MEDS ORDERED: diphenhydrAMINE 50 MG/ML 1 ML VIAL IVP PRN (08:45)
[2022-04-06] MEDS ORDERED: diphenhydrAMINE 25 MG CAP PO PRN (08:45)
[2022-04-06] MEDS ORDERED: SIMETHICONE 80 MG CHEWABLE PO PRN (08:45)
[2022-04-06] MEDS ORDERED: diphenhydrAMINE 50 MG CAP PO PRN (08:45)
[2022-04-06] MEDS ORDERED: NALOXONE 0.4 MG/ML 1 ML VIAL IV PRN (08:45)
[2022-04-06] MEDS ORDERED: LANOLIN CREAM 5 GM TUBE TOPICAL PRN (08:45)
[2022-04-06] MEDS ORDERED: ZOLPIDEM 5 MG TAB PO PRN (08:45)
[2022-04-06] MEDS ORDERED: OXYTOCIN 30 UNITS/500 ML NS 30 UNIT in SALINE 1 500ML.BAG IV SCH (08:45)
[2022-04-06] MEDS ORDERED: METOCLOPRAMIDE 5 MG/ML 2 ML VIAL IVP PRN (08:45)
--- NOTE | 2022-04-06 08:50 | P.HPOB ---
History of Present Illness H&P Date: 04/06/22 Chief Complaint: repeat low transverse 36 year old presents at 30 weeks and 1 day for repeat low transverse C- section. She has been undergoing surveillance for gestational hypertension on labetalol 100 twice daily. Review of Systems All systems: negative Constitutional: Denies chills, Denies fever Eyes: denies blurred vision, denies pain Ears, nose, mouth and throat: Denies headache, Denies sore throat Cardiovascular: Denies chest pain, Denies shortness of breath Respiratory: Denies cough Gastrointestinal: Denies abdominal pain, Denies diarrhea, Denies nausea, Denies vomiting Genitourinary: Denies dysuria, Denies hematuria Musculoskeletal: Denies myalgias Integumentary: Denies pruritus, Denies rash Neurological: Denies numbness, Denies weakness Psychiatric: Denies anxiety, Denies depression Endocrine: Denies fatigue, Denies weight change Past Medical History Past Medical History: Hypertension Additional Past Medical History / Comment(s): only takes BP med during her pregnancies History of Any Multi-Drug Resistant Organisms: None Reported Past Surgical History: Bariatric Surgery, Section, Cholecystectomy Additional Past Surgical History / Comment(s): EGD, 216 lap sleeve Past Anesthesia/Blood Transfusion Reactions: Motion Sickness Past Psychological History: No Psychological Hx Reported Smoking Status: Never smoker Past Alcohol Use History: None Reported Past Drug Use History: None Reported - Past Family History Sister(s) Family Medical History: Thyroid Disorder Father Family Medical History: Diabetes Mellitus Mother Family Medical History: No Reported History, Thyroid Disorder Additional Family Medical History / Comment(s): chronic kidney stones, mother 2 years ago (2017) from ?blood clot or thrombocytopenia after lasik surgery. Medications and Allergies Home Medications Medication Instructions Recorded Confirmed Type Labetalol [Trandate] 100 mg PO BID 01/22/20 04/01/22 History Vit No.180/Iron/Folic 2 each PO DAILY 01/22/20 04/01/22 History [ Plus Vitamin-Mineral] Cholecalciferol (Vitamin D3) 25 mcg PO DAILY 03/19/22 04/01/22 History [Vitamin D3] Aspirin 81 mg PO DAILY 04/01/22 04/01/22 History Ferrous Sulfate [Feosol] 325 mg PO DAILY 04/01/22 04/01/22 History Allergies Allergy/AdvReac Type Severity Reaction Status Date / Time seasonal AdvReac Cough Uncoded 04/01/22 15:20 Exam Osteopathic Statement: *. No significant issues noted on an osteopathic structural exam other than those noted in the History and Physical/Consult. Vital Signs Temp Pulse Resp BP Pulse Ox 04/06/22 06:44 97.6 F 106 H 16 133/80 98 Intake and Output 04/05/22 04/06/22 04/06/22 22:59 06:59 14:59 Other: Weight 131.542 kg Heart: Regular rate and rhythm Lungs: Clear to auscultation bilaterally Abdomen: Soft, nontender Extremities: Negative Homans sign Results Result Diagrams: 04/06/22 06:24 Abnormal Lab Results - Last 24 Hours (Table) 04/06/22 Range/Units 06:24 Hgb 9.6 L (11.4-16.0) gm/dL Hct 29.4 L (34.0-46.0) % MCV 74.6 L (80.0-100.0) fL MCH 24.3 L (25.0-35.0) pg Plt Count 539 H (150-450) k/uL Assessment and Plan (1) Gestational hypertension Current Visit: No Status: Acute Code(s): O13.9 - GESTATIONAL HTN W/O SIGNIFICANT PROTEINURIA, UNSP TRIMESTER SNOMED Code(s): 41474948 (2) Previous section Current Visit: Yes Status: Acute Code(s): Z98.891 - HISTORY OF UTERINE SCAR FROM PREVIOUS SURGERY SNOMED Code(s): 949984452 Plan: 1. Repeat low transverse
--- NOTE | 2022-04-06 08:52 | P.OP ---
Date of Procedure: 04/06/22 Preoperative Diagnosis: 1. Gestational hypertension 2. at 30 weeks and 1 day 3. Previous section Postoperative Diagnosis: same Procedure(s) Performed: repeat low transverse Anesthesia: spinal Surgeon: Penelope Dickerson Greenskeeper #1: Sheldon Moya Estimated Blood Loss (ml): 420 IV fluids (ml): 1,200 Urine output (ml): 50 Pathology: none sent Condition: stable Disposition: floor Operative Findings: Viable male, Apgars 9, 10, weight 7 lbs. 11 oz. normal uterus, tubes, ovaries. Description of Procedure: Patient was taken to the operating room where spinal anesthesia was found be adequate. She was prepped and draped in normal sterile fashion in dorsal supine position with a leftward tilt. Pfannenstiel skin incision was made the scalpel and carried through to the underlying layer of fascia with the scalpel. Fascia was incised in midline and carried bilaterally with the Nunez scissors. The superior aspect of the fascial incision was grasped with Eddy clamps elevated and the underlying rectus muscles dissected off with the Nunez's. Attention was then turned to inferior aspect of same incision which in a similar fashion was grasped tented up and the underlying rectus muscles dissected off with the Nunez's. The rectus muscles were the midline and the peritoneum was identified tented up and entered sharply with the scalpel. The incision was extended superiorly and inferiorly with good visualization of the bladder. The bladder blade was inserted and the vesicouterine peritoneum was incised the Metzenbaums then carried bilaterally and bladder flap created digitally. A low transverse incision was then made on the uterus with the scalpel. This was carried bilaterally and digital manner. 's head delivered atraumatically, nose and mouth bulb suctioned, cord clamped and cut, handed off to waiting nurses. Apgars 9,10, weight 7 lbs. 11 oz. Placenta delivered manually, intact with three-vessel cord. The uterus is exteriorized and cleared of all clots and debris. The uterine incision was closed with 0 Vicryl in a running locked fashion. Second layer of the same sutures used in imbricating fashion to obtain excellent hemostasis. Bladder flap was then reapproximated using 2-0 Vicryl in a running fashion. Both ovaries and tubes appeared normal. The uterus was placed back into the abdomen. The peritoneum was reapproximated using 2-0 Vicryl in a running fashion. The muscles were reapproximated using 2- 0 Vicryl in interrupted fashion. The fascia was reapproximated using 0 Vicryl in a running fashion. The subcutaneous tissues closed with 3-0 Vicryl running fashion. The skin was closed adarsh. Patient tolerated the procedure well, sponge and instrument counts were correct times 2 and she was taken to the recovery room in stable condition.
[2022-04-06] MEDS: LABETALOL 100 MG TAB PO SCH ×2 (09:05→21:04)
[2022-04-06] MEDS: diphenhydrAMINE 50 MG/ML 1 ML VIAL IVP PRN (12:05)
[2022-04-06] MEDS: ACETAMINOPHEN TAB 500 MG TAB PO SCH ×2 (12:05→20:00)
[2022-04-06] MEDS: KETOROLAC 15 MG/ML 1 ML VIAL IVP SCH ×2 (16:22→23:09)
[2022-04-06] MEDS: IBUPROFEN 600 MG TAB PO SCH (16:24)
[2022-04-06] MEDS: SENNOSIDES-DOCUSATE SODIUM 1 EACH TAB PO SCH (20:00)
[2022-04-07] MEDS: LACTATED RINGERS 1,000 ML IV SCH (01:46)
[2022-04-07] MEDS: IBUPROFEN 600 MG TAB PO SCH ×4 (01:46→21:53)
[2022-04-07] MEDS: ACETAMINOPHEN TAB 500 MG TAB PO SCH ×4 (02:47→23:34)
[2022-04-07] MEDS: diphenhydrAMINE 50 MG/ML 1 ML VIAL IVP PRN (02:53)
[2022-04-07] MEDS: KETOROLAC 15 MG/ML 1 ML VIAL IVP SCH ×2 (05:38→14:43)
[2022-04-07 08:16] LABS: Basophils # (A) 0.1 k/uL (0-0.2); Basophils % (A) 1 %; Eosinophils # (A) 0.2 k/uL (0-0.7); Eosinophils % (A) 2 %; HCT 28.3 % (34.0-46.0); Hypochromasia Moderate; Lymphocytes # (A) 2.1 k/uL (1.0-4.8); Lymphocytes % (A) 21 %; MCH 24.1 pg (25.0-35.0); MCHC 31.9 g/dL (31.0-37.0); MCV 75.5 fL (80.0-100.0); Microcytosis Slight; Monocytes # (A) 0.4 k/uL (0-1.0); Monocytes % (A) 4 %; Neutrophils % (A) 70 %; Platelet Count 474 k/uL (150-450); RBC 3.75 m/uL (3.80-5.40); RDW 14.7 % (11.5-15.5)
[2022-04-07] MEDS: SENNOSIDES-DOCUSATE SODIUM 1 EACH TAB PO SCH ×2 (08:49→21:54)
[2022-04-07] MEDS: LABETALOL 100 MG TAB PO SCH ×2 (08:49→21:54)
--- NOTE | 2022-04-07 17:32 | P.PNOBGPC ---
Subjective - Subjective Principal diagnosis: Status post repeat low transverse postop day 1 Interval history: Patient seen and examined. Denies nausea, vomiting, chest pain, shortness of breath or calf pain. Patient reports: Reports appetite normal, Reports voiding normally, Reports pain well controlled, Reports ambulating normally [place]: doing well Objective - Vital Signs Latest vital signs: Vital Signs Temp Pulse Resp BP Pulse Ox 04/07/22 16:00 98.0 F 92 16 142/84 97 04/07/22 08:00 98.5 F 94 16 136/75 98 04/07/22 04:00 98.0 F 83 16 128/75 04/07/22 00:00 97.8 F 99 16 142/82 04/06/22 20:00 97.9 F 58 L 16 137/79 Intake and Output 04/07/22 04/07/22 04/07/22 06:59 14:59 22:59 Output Total 200 Balance -200 Output: Urine 200 Other: # Voids 1 1 - Exam Lungs: bilateral: normal Chest: Normal S1, Normal S2 Extremities: Present: normal Abdomen: Present: normal appearance, soft. Absent: distention, tenderness Incision: Present: normal, dry, intact Uterus: Present: normal, firm - Labs Labs: Abnormal Lab Results - Last 24 Hours (Table) 04/07/22 Range/Units 07:48 RBC 3.75 L (3.80-5.40) m/uL Hgb 9.0 L (11.4-16.0) gm/dL Hct 28.3 L (34.0-46.0) % MCV 75.5 L (80.0-100.0) fL MCH 24.1 L (25.0-35.0) pg Plt Count 474 H (150-450) k/uL Assessment and Plan (1) Gestational hypertension Current Visit: No Status: Resolved Code(s): O13.9 - GESTATIONAL HTN W/O SIGNIFICANT PROTEINURIA, UNSP TRIMESTER SNOMED Code(s): 71904587 (2) Previous section Current Visit: Yes Status: Chronic Code(s): Z98.891 - HISTORY OF UTERINE SCAR FROM PREVIOUS SURGERY SNOMED Code(s): 971095810 (3) Status post repeat low transverse section Current Visit: Yes Status: Acute Code(s): Z98.891 - HISTORY OF UTERINE SCAR FROM PREVIOUS SURGERY SNOMED Code(s): 637457029 Plan: An. Increase ambulation 2. By mouth pain medication
[2022-04-08] MEDS: IBUPROFEN 600 MG TAB PO SCH ×3 (04:14→20:28)
[2022-04-08] MEDS: LABETALOL 100 MG TAB PO SCH ×2 (08:58→20:28)
[2022-04-08] MEDS: SENNOSIDES-DOCUSATE SODIUM 1 EACH TAB PO SCH ×2 (08:58→20:28)
[2022-04-08] MEDS: ACETAMINOPHEN TAB 500 MG TAB PO SCH ×2 (08:59→16:13)
--- NOTE | 2022-04-08 13:04 | P.DS ---
Providers Date of admission: 04/06/22 06:00 Expected date of discharge: 04/08/22 Attending physician: Penelope Dickerson Primary care physician: Stated None - Discharge Diagnosis(es) (1) Gestational hypertension Current Visit: No Status: Resolved (2) Previous section Current Visit: Yes Status: Chronic (3) Status post repeat low transverse section Current Visit: Yes Status: Acute Hospital Course: Patient presented for repeat low transverse . She underwent this procedure without complication. Postoperative course was uneventful. She denies nausea, vomiting, chest pain, short of breath and An. Visually discharged home day #2 in stable condition to follow-up with me in one week. Plan - Discharge Summary Discharge Rx Participant: Yes New Discharge Prescriptions: New Ibuprofen [Motrin] 600 mg PO Q6H #30 tab oxyCODONE HCL [OxyIR] 5 mg PO Q4HR PRN #12 tab PRN Reason: Pain Scale 4 - 6 No Action Vit No.180/Iron/Folic [ Plus Vitamin-Mineral] 2 each PO DAILY Labetalol [Trandate] 100 mg PO BID Cholecalciferol (Vitamin D3) [Vitamin D3] 25 mcg PO DAILY Aspirin 81 mg PO DAILY Ferrous Sulfate [Feosol] 325 mg PO DAILY Discharge Medication List Labetalol [Trandate] 100 mg PO BID 01/22/20 [History] Vit No.180/Iron/Folic [ Plus Vitamin-Mineral] 2 each PO DAILY 01/22/20 [History] Cholecalciferol (Vitamin D3) [Vitamin D3] 25 mcg PO DAILY 03/19/22 [History] Aspirin 81 mg PO DAILY 04/01/22 [History] Ferrous Sulfate [Feosol] 325 mg PO DAILY 04/01/22 [History] Ibuprofen [Motrin] 600 mg PO Q6H #30 tab 04/08/22 [Rx] oxyCODONE HCL [OxyIR] 5 mg PO Q4HR PRN #12 tab 04/08/22 [Rx] Follow up Appointment(s)/Referral(s): Penelope Dickerson DO [Doctor of Osteopathic Medicine] - 1 Week Discharge Disposition: HOME SELF-CARE
--- NOTE | 2022-04-08 19:42 | P.PN ---
Progress Note - Text 04/07/22 631am 36-year-old female status post with spinal Duramorph. Patient seen and evaluated for postop pain control, she is a vas of 1 with no complains of nausea vomiting. She does have mild pruritus which should subside soon
[2022-04-09] MEDS: ACETAMINOPHEN TAB 500 MG TAB PO SCH ×2 (01:27→09:38)
[2022-04-09] MEDS: IBUPROFEN 600 MG TAB PO SCH (05:28)
[2022-04-09] MEDS: LABETALOL 100 MG TAB PO SCH (07:47)
[2022-04-09 07:55] VITALS: BP 140/88; PULSE 88; RESP 16; TEMP 97.7
== END 2022-04-09 11:05 | disposition home or self-care (01) | DRG 787 ==
LOC: 4FBP 06:00
PROVIDERS: ADMIT Obstetrics & Gynecology; ATTEND Obstetrics & Gynecology
PROC: 4A0HXCZ Measurement of Products of Conception, Cardiac Rate, External Approach (ICD-10-PCS; 2022-04-06)
PROC: 10D00Z1 Extraction of Products of Conception, Low, Open Approach (ICD-10-PCS; principal; 2022-04-06 08:00)
DX: O34.211 Maternal care for low transverse scar from previous cesarean delivery (principal); O10.92 Unspecified pre-existing hypertension complicating childbirth; O99.73 Diseases of the skin and subcutaneous tissue complicating the puerperium; O99.892 Other specified diseases and conditions complicating childbirth; J30.2 Other seasonal allergic rhinitis; L29.9 Pruritus, unspecified; Z79.82 Long term (current) use of aspirin; Z3A.30 30 weeks gestation of pregnancy; Z37.0 Single live birth; Z90.49 Acquired absence of other specified parts of digestive tract; Z98.84 Bariatric surgery status
CPT/HCPCS: 85025; 86850; 86900; 86901